=== PATIENT | male | born 1965 ===

== ENCOUNTER 2018-07-06 06:37 | Day surgery (SDC) | payer BC ==
[~2018-07-06 06:37] MED LIST: Buffered Lidocaine 1% SYRIN* 1 ML/SYRINGE INTRADERM ONE; Lactated Ringers 1000 ML Bag* 1,000 ML IV SCH; Sodium Citrate/Citric Acid* 15 ML UDC PO ONE
[2018-07-06] MEDS ORDERED: ceFAZolin 2 GM PREMIX in ORs 2 GM/50 ML BAG IVPB ONE (06:47)
[2018-07-06] MEDS ORDERED: Sodium Citrate/Citric Acid* 15 ML UDC ONE (06:47)
[2018-07-06] MEDS ORDERED: Bupivacaine 0.25% SDV* 30 ML ONE (07:07)
[2018-07-06] MEDS ORDERED: fentaNYL* 50 MCG/ML 2 ML VIAL (100 MCG VIAL) ONE (07:21)
[2018-07-06] MEDS ORDERED: Propofol* 10 MG/ML 20 ML BTL ONE (07:23)
[2018-07-06] MEDS ORDERED: Lidocaine 2% PF * 5 ML VIAL ONE (07:23)
[2018-07-06] MEDS ORDERED: Dexamethasone IV* 4 MG/ML 1 ML (4 MG) ONE (07:48)
[2018-07-06] MEDS ORDERED: Ketorolac INJ* 30 MG/ML 1 ML VIAL ONE (07:48)
[2018-07-06] MEDS ORDERED: Naloxone* 0.4 MG/ML 1 ML VIAL IV PRN (08:03)
[2018-07-06] MEDS ORDERED: Ondansetron INJ* 2 MG/ML VIAL IV PRN (08:03)
[2018-07-06] MEDS ORDERED: fentaNYL* 50 MCG/ML 2 ML VIAL (100 MCG VIAL) IV PRN (08:03)
[2018-07-06 09:39] VITALS: BP 115/80
--- NOTE | 2018-07-06 11:57 | OP ---
DATE OF OPERATION: 07/06/18 - [facility] DATE OF : 65 SURGEON: Niraj Sheets MD. RACK WASHER: MARIA FERNANDA Holman. An assistant basketball coach was needed for the procedure to aid in position of the arm and retraction. ANESTHESIOLOGIST: Dr. Rosa. ANESTHESIA: General. PRE-OP DIAGNOSIS: Right thumb metacarpophalangeal joint full-thickness ulnar collateral ligament tear with instability of the metacarpophalangeal joint. POST-OP DIAGNOSIS: Right thumb metacarpophalangeal joint full-thickness ulnar collateral ligament tear with instability of the metacarpophalangeal joint. OPERATIVE PROCEDURE: Open repair of the right thumb metacarpophalangeal joint ulnar collateral ligament. INDICATIONS: Niraj had the injury 7 weeks ago while skiing. 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 He came to me, and MRI confirmed the large full- thickness tear and it looked like the ulnar collateral ligament had rotated and it seemed in much more vertical position. I told him that 7 weeks trying to treat this and recreate stability with casting was likely going to be an insufficient treatment. I talked to him about the risks and benefits and he wanted to proceed with surgical repair. He understood we may need to use a piece of tendon graft to get good stability but I thought we can probably repair it simply by derotating the ligament and placing it more in the anatomic position. ESTIMATED BLOOD LOSS: 2 mL. COMPLICATIONS: None. FINDINGS: See above and below. DESCRIPTION OF PROCEDURE: Niraj was seen in the preoperative holding area. The correct side, site, and procedure were identified. We came back to the operating room. The arm was prepped and draped in the usual fashion and a time- out was performed. The arm was exsanguinated with the Esmarch and the tourniquet was inflated to 250 mmHg. I went ahead and made a lazy-S incision over the ulnar aspect of the right thumb MCP joint. Dissection was carried down longitudinally, preserved the sensory nerves, and full-thickness flaps were raised off of the adductor aponeurosis. This was incised longitudinally and retracted palmarly and dorsally to expose the ligament. The ligament had indeed healed in a very vertical position exclusively to the volar plate. There was no ligament attaching to the base of the proximal phalanx. I went ahead and released the soft tissue over the base of the proximal phalanx that had formed. I then released the ulnar collateral ligament from where it had attached to the volar plate and then once I freed it up, rotated it back into the anatomic position. At this point, I took a curette and a rongeur to freshen up the bone at the footprint of the ligament. I then placed two mini Mitek suture anchors in the footprint. I used a 2-0 Ethibond suture off the suture anchors to whipstitch up into the ligament and then I tied them off in standard suture anchor fashion so as to get excellent ligament to bone apposition. This restored the integrity of the ligament completely. I then took some 3-0 Ethibond suture and sutured the inferior aspect of the ligament back down to the volar plate. The MCP joint then had complete stability. I irrigated out the wound. The adductor aponeurosis was closed with 4-0 Prolene suture. Skin was closed with 4 -0 nylon suture. 0.25% Marcaine had been infiltrated at the beginning of the case, a little bit more was infiltrated at the end of the case. The wound was dressed with Xeroform, 4x4s, sterile Webril, and then a thumb spica splint out to the tip of the thumb was applied to protect the ligament repair. Tourniquet was deflated and the thumb pinked up immediately, and he was taken to the recovery room in stable condition. [id number]/[facility] #: [id number] MTDD
== END 2018-07-06 09:54 | disposition home or self-care (01) ==
LOC: OREAST 06:37
PROVIDERS: ATTEND Orthopaedic Surgery Hand Surgery
DX: S63.641A Sprain of metacarpophalangeal joint of right thumb, initial encounter (principal); V00.321A Fall from snow-skis, initial encounter; Y93.23 Activity, snow (alpine) (downhill) skiing, snowboarding, sledding, tobogganing and snow tubing; Y92.39 Other specified sports and athletic area as the place of occurrence of the external cause
CPT/HCPCS: A9270-GY; C1713; J0690; J1100; J1885; J2704; J3010; J3490